=== PATIENT | male | born 1985 | race Caucasian/White ===

== ENCOUNTER 2022-01-15 18:59 | Inpatient (IN) | payer MEDICAID, SELFPAY ==
[2022-01-15 19:00] VITALS: BP 147/90; PULSE 111; RESP 18; TEMP 36.6; O2SAT 95; BMI 23.7
--- NOTE | 2022-01-15 19:06 | EDS_ITS ---
[facility] History of Present Illness Chief Complaint: Substance Abuse Narrative Narrative: Patient presents with request of detox. He uses fentanyl at least a gram daily via inhalation, he last used this morning and wants to quit for his kids. He has no current systemic complaints or any other medical problems. He has gone through detox 1 time in the past in [place], he went through the rehab phase also at that time. PFSH PFS Medical History no medical history Allergy/AdvReac Type Severity Reaction Status Date / Time No Known Allergies Allergy Verified 01/15/22 19:00 Social History Smoking Status: Current every day smoker tobacco type: cigarettes ROS ROS ED ROS Narrative Past medical history: Reviewed Medications: Reviewed Social history: Opiate abuser as in HPI, he has gone through detox 1 time in the past. Review of systems: All systems negative except as indicated General: No fever Eyes: No visual changes ENT: No upper airway congestion, normal voice Neck: No neck pain Cardiovascular: No chest pain Respiratory: No shortness of breath or cough Gastrointestinal: No abdominal pain, nausea vomiting or diarrhea Genitourinary: No dysuria Musculoskeletal: Denies myalgias no difficulty with ambulation Skin: No rash Neurological: No memory loss, confusion or any focal weakness Psych: No recent behavioral changes Hematologic: No easy bleeding or easy bruising EXAM Physical Exam Narrative Exam Narrative: Physical exam General: Well nourished, Well developed, No Acute Distress Head: Normocephalic, Atraumatic Eyes: Conjunctiva not pale ENT: Moist mucous membranes Neck: Supple, Nontender, No lymphadenopathy Cardiovascular: Regular rate, Regular rhythm Respiratory: No distress, CTA bilaterally Abdomen: Soft, Nontender, Nondistended Back: Nontender, Normal Inspection. Negative for: CVA tenderness Extremities: Nontender, No edema Skin: Normal color, No rash Neurological: Alert, Normal Strength, Normal Sensation Psychological: Normal affect Const Vital Signs: 01/15/22 19:00 Temperature 97.9 F Temperature Source Temporal Pulse Rate 111 H Respiratory Rate 18 Blood Pressure 147/90 H Blood Pressure Mean 109 Pulse Ox 95 Oxygen Delivery Method Room Air MDM MDM MDM Narrative Medical decision making narrative: Patient will be medically cleared. I will call for admission for detox. Discharge Plan Triage Chief Complaint: Substance Abuse ED Provider: Torrey Ferrer Dx/Rx/DC Orders Clinical Impression: Opiate abuse, continuous, Opiate dependence Primary Care Provider: [facility] Doctor,Out of Referrals: [facility] Doctor,Out of [Primary Care Provider] - Disposition Disposition: Acute Care Hospital [facility]
--- NOTE | 2022-01-15 19:26 | PCM.HP.STD ---
HPI - General General Date of Admission: 01/15/22 HPI Narrative JOSE RESENDEZ, is a 36 M with a significant history of drug abuse; and tobacco abuse who presents to the emergency department with follow-up with detoxification. Of notes patient's drug of choice is heroin/fentanyl. He inhaled these drugs. He has been using on and off for 20+ years. About 4 years ago he went to a drug rehabilitation program at [place]. He uses about 1 g or more a day. Last time he used was about 5 hours prior to presentation. He denies any withdrawal symptoms at this time except that he is anxious. [facility] Medical History Smoker Substance abuse Medical History no medical history no medical history Home Medications NK 01/15/22 [History Last Taken Unknown] Allergy/AdvReac Type Severity Reaction Status Date / Time adhesive tape Allergy Rash Verified 01/15/22 19:17 paroxetine [From Paxil] Allergy Rash Verified 01/15/22 19:17 Family History Other Colon cancer Surgical History no surgical history no surgical history Social History Smoking Status: Current every day smoker tobacco type: cigarettes ROS ROS Narrative Pertinent positives and pertinent negatives as noted in HPI. All other systems were reviewed and are negative. Vital Signs Vital Signs Vital Signs: 01/15/22 19:00 Temperature 97.9 F Temperature Source Temporal Pulse Rate 111 H Respiratory Rate 18 Blood Pressure 147/90 H Blood Pressure Mean 109 Pulse Ox 95 Oxygen Delivery Method Room Air Weight Weight: 79.379 kg Body Mass Index (BMI) 23.7 Physical Exam Narrative Physical exam: General: Well-nourished, well-developed. Head: Normocephalic, atraumatic, no tenderness Eyes: Vision is grossly intact. EOMI ENT, no trauma, moist mucous membranes, no rhinorrhea Neck: Nontender, full range of motion, no spinal tenderness, deformities, step-off CVS: Regular rate and rhythm. S1-S2 present. No murmur, gallop or rub. Respiratory : clear to auscultation bilaterally, chest wall nontender, no wheezing Abdomen: Soft, nontender, nondistended, normal bowel sounds, no masses : Deferred Back: Nontender, no CVA tenderness, no midline spinal tenderness, deformities, step-offs Extremities: Nontender full range of motion, no trauma Skin: Normal color, no trauma, abrasions Neuro: Alert, oriented, cranial nerves II through XII grossly intact. Psychiatry: Normal mood. Normal affect. Not depressed. Not anxious. Results Lab / Micro Data Result Diagrams: 01/15/22 19:15 01/15/22 19:10 Labs: Laboratory Results - last 24 hr 01/15/22 19:10: Ur Drug Screen Comment Assessment & Plan Assessment/Plan (1) Opiate abuse, continuous: (2) Opiate dependence: QUALIFIERS: Substance use status: uncomplicated Qualified Code(s): F11.20 - Opioid dependence, uncomplicated (3) Desire for detoxification: PLAN: Desire for detoxification Urine toxicology reviewed was positive for opiates. Patient be started on Subutex and other adjunctive medications: Gabapentin as needed; dicyclomine as needed; Vistaril as needed; methocarbamol as needed; clonidine as needed; Imodium as needed; trazodone as needed and Zofran as needed. Noted to have elevated blood pressure likely secondary to withdrawal. Trend. CBC showed elevated leukocytosis. Likely reactive. Trend. BMP reviewed was unremarkable. Monitor COWS and CINA score Tobacco abuse Counseled Nicotine patch and prescribed. DVT prophylaxis Low risk Encourage to ambulate Charges/Coding Visit Charges Inpatient E&M: 70830 Init Hosp L2
[2022-01-15 19:27] LABS: Absolute Lymphocyte Count 4.06 X10^3/uL (0.83-4.51); Absolute Neutrophil Count 11.5 X10^3/uL (2.0-7.7); Basophil# 0.03 X10^3/uL; Basophil% 0.2 % (0-1); Eosinophil# 0.13 X10^3/uL; Eosinophils% 0.8 % (0-5); Hemoglobin 15.7 g/dL (13.0-16.5); Lymphocyte # 4.06 X10^3/ul (0.83-4.51); Lymphocyte % 24.2 % (19-41); Mean Corp Hgb Conc 32.7 g/dL (32-36); Mean Corpuscular Hgb 29.2 pg (27.0-32.0); Mean Corpuscular Volume 89.2 fL (80-94); Mean Platelet Vol. 10.1 fl (6.2-12.0); Monocyte# 1.04 X10^3/uL; Monocyte% 6.2 % (0-10); NRBC Flagged by Analyzer 0 % (0-5); Neutrophil # 11.48 X10^3/uL (2.7-7.7); Neutrophil % 68.3 % (47-70); Platelet Count 384 K/mm3 (150-450); RBC Distribution Width CV 12.5 % (11.6-14.6); RBC Distribution Width SD 41.1 fl (35.1-43.9); Red Blood Count 5.38 M/mm3 (4.6-6.2); White Blood Count 16.8 K/mm3 (4.4-11.0)
[2022-01-15 19:47] VITALS: BP 137/97; PULSE 84; RESP 18; TEMP 36.3; O2SAT 99
[2022-01-15 19:52] LABS: ALB/GLOB Ratio 1.2 RATIO (0.9-2.4); AST(SGOT) 10 U/L (15-37); Alanine Aminotransfer ALT/SGPT 15 U/L (16-61); Albumin, Serum 4.4 g/dL (3.2-5.0); Alkaline Phosphatase 77 U/L (45-117); Anion Gap 5 (5-15); BUN 12 mg/dL (7-18); BUN/Creat Ratio 11.2 RATIO (10-20); Calcium,Total 9.1 mg/dL (8.5-10.1); Chloride 108 mmol/L (98-107); Creatinine, Serum 1.07 mg/dL (0.70-1.30); EST Glomerular Filtration Rate 83 mL/min (>60); Est Glom Filt Rate - Afr Amer 100 mL/min (>60); Estimated Creatinine Clearance 103.75 ml/min; Globulin 3.7 g/dL (2.2-4.2); Glucose 93 mg/dL (74-106); Potassium 3.9 mmol/L (3.5-5.1); Protein, Total 8.1 g/dL (6.4-8.2); Sodium Level 142 mmol/L (136-145)
[2022-01-15 19:57] LABS: Alcohol, Blood (Medical)-Serum < 3.0 mg/dL
[2022-01-15 20:00] LABS: Amphetamine Urine VISTA NEGATIVE (<1000 ng/mL); Barbiturate Urine VISTA NEGATIVE (< 200 ng/mL); Benzodiazepine Urine VISTA NEGATIVE (< 200 ng/mL); Cocaine Urine VISTA NEGATIVE (< 300 ng/mL); Ecstacy Urine VISTA NEGATIVE (< 500 ng/mL); Methadone Urine VISTA NEGATIVE (< 300 ng/mL); PCP Urine VISTA NEGATIVE (< 25 ng/mL); THC Urine VISTA NEGATIVE (< 50 ng/mL); Vista UDS pH Range 5
[2022-01-15 20:15] VITALS: BMI 22.6
[2022-01-15 20:23] VITALS: BP 136/95; PULSE 89; RESP 18; TEMP 37.2; O2SAT 97
[2022-01-15] MEDS: 0.9% Saline Lock 10 ML Syringe IV (21:17)
[2022-01-16 03:53] VITALS: BP 122/79; PULSE 76; RESP 16; TEMP 36.8; O2SAT 97
[2022-01-16 06:07] VITALS: PULSE 75; RESP 16; O2SAT 97
[2022-01-16 06:19] LABS: Absolute Lymphocyte Count 3.62 X10^3/uL (0.83-4.51); Absolute Neutrophil Count 4.7 X10^3/uL (2.0-7.7); Basophil# 0.04 X10^3/uL; Basophil% 0.4 % (0-1); Eosinophil# 0.25 X10^3/uL; Eosinophils% 2.7 % (0-5); Hematocrit 46.2 % (40-54); Lymphocyte # 3.62 X10^3/ul (0.83-4.51); Lymphocyte % 39.3 % (19-41); Mean Corp Hgb Conc 32.5 g/dL (32-36); Mean Corpuscular Hgb 29.1 pg (27.0-32.0); Mean Corpuscular Volume 89.5 fL (80-94); Mean Platelet Vol. 10.2 fl (6.2-12.0); Monocyte# 0.61 X10^3/uL; Monocyte% 6.6 % (0-10); NRBC Flagged by Analyzer 0 % (0-5); Neutrophil # 4.67 X10^3/uL (2.7-7.7); Neutrophil % 50.7 % (47-70); Platelet Count 272 K/mm3 (150-450); RBC Distribution Width CV 12.4 % (11.6-14.6); RBC Distribution Width SD 41.2 fl (35.1-43.9); Red Blood Count 5.16 M/mm3 (4.6-6.2); White Blood Count 9.2 K/mm3 (4.4-11.0)
[2022-01-16 08:00] VITALS: BP 108/91; PULSE 85; RESP 18; TEMP 36.5; O2SAT 99
[2022-01-16] MEDS: Buprenorphine HCl 2 MG TAB.SUBL SL ×2 (08:41→16:56)
[2022-01-16] MEDS: hydrOXYzine PAM 25 MG Capsule 50 MG PO ×2 (08:55→16:56)
[2022-01-16] MEDS: Methocarbamol 750 MG Tablet 1500 MG PO ×2 (08:55→16:56)
[2022-01-16] MEDS: Ondansetron 8 MG Tablet PO (08:55)
--- NOTE | 2022-01-16 11:01 | ADDICTION ---
This signwriter met with PT to conduct ASAM, MSE, AUDIT, DUDIT assessments and to plan for d/c. PT A+Ox4 and participated actively. All assessments completed and placed in PT's chart. PT plans to f/u with treatment services, however he wants a day to think about it. PT did not indicate a need for transportation post d/c from [facility].
--- NOTE | 2022-01-16 11:53 | PCM.PN.HOSP ---
Documented by User: Ambika Grissom NP-C 01/16/22 12:03 Subjective Subjective Patient seen and examined. Patient reporting symptoms of nausea, body aches, diaphoresis. Encourage patient to request supportive medications when needed and to communicate regularly with nurses about symptoms that he is having. Patient voiced understanding. Objective Data Objective Data Vital Signs: Vital Signs Temp Pulse Resp BP Pulse Ox 97.7 F L 85 18 108/91 H 99 01/16/22 08:00 01/16/22 08:00 01/16/22 08:00 01/16/22 08:00 01/16/22 08:00 Oxygen Delivery Method Room Air Weight: 166 lb 14.239 oz Body Mass Index (BMI) 22.6 Lab / Micro Data Result Diagrams: 01/16/22 05:55 01/15/22 19:10 Labs: Laboratory Results - last 24 hr 01/15/22 19:10: Sodium 142, Potassium 3.9, Chloride 108 H, Carbon Dioxide 29.0, Anion Gap 5, BUN 12, Creatinine 1.07, Estim Creat Clear Calc 103.75, Est GFR (MDRD) Af Amer 100, Est GFR (MDRD) Non-Af 83, BUN/Creatinine Ratio 11.2, Glucose 93, Calcium 9.1, Total Bilirubin 0.40, AST 10 L, ALT 15 L, Alkaline Phosphatase 77, Total Protein 8.1, Albumin 4.4, Globulin 3.7, Albumin/Globulin Ratio 1.2 01/15/22 19:10: Urine Opiates Screen POSITIVE H, Urine Methadone Screen NEGATIVE, Ur Barbiturates Screen NEGATIVE, Ur Phencyclidine Scrn NEGATIVE, Ur Amphetamines Screen NEGATIVE, MDMA (Ecstasy) Screen NEGATIVE, U Benzodiazepines Scrn NEGATIVE, Urine Cocaine Screen NEGATIVE, U Cannabinoids Screen NEGATIVE, Ur Drug Screen Comment 01/15/22 19:15: WBC 16.8 H, RBC 5.38, Hgb 15.7, Hct 48.0, MCV 89.2, MCH 29.2, MCHC 32.7, RDW Std Deviation 41.1, RDW Coeff of Marshall 12.5, Plt Count 384, MPV 10.1, Immature Gran % (Auto) 0.300, Neut % (Auto) 68.3, Lymph % (Auto) 24.2, Oliver % (Auto) 6.2, Eos % (Auto) 0.8, Baso % (Auto) 0.2, Absolute Neuts (auto) 11.5 H, Absolute Lymphs (auto) 4.06, Nucleated RBC % 0 01/15/22 19:15: Ethyl Alcohol < 3.0 01/16/22 05:55: WBC 9.2, RBC 5.16, Hgb 15.0, Hct 46.2, MCV 89.5, MCH 29.1, MCHC 32.5, RDW Std Deviation 41.2, RDW Coeff of Marshall 12.4, Plt Count 272, MPV 10.2, Immature Gran % (Auto) 0.300, Neut % (Auto) 50.7, Lymph % (Auto) 39.3, Oliver % (Auto) 6.6, Eos % (Auto) 2.7, Baso % (Auto) 0.4, Absolute Neuts (auto) 4.7, Absolute Lymphs (auto) 3.62, Nucleated RBC % 0 Physical Exam Const alert and oriented x3 General Appearance: anxious HEENT head/scalp atraumatic Head and Scalp: normocephalic Eyes conjunctivae normal and no scleral icterus Neck supple General: trachea midline Resp normal respiratory effort, normal air movement and clear to auscultation bilaterally Effort and Inspection: able to speak in complete sentences and symmetric chest movement Cardio regular rate, regular rhythm, S1 normal heart sound and S2 normal heart sound GI normal to inspection, nondistended, normoactive bowel sounds, soft to palpation and non-tender Extremity normal to inspection, full ROM and no clubbing, cyanosis or edema Skin no rashes or lesions noted Neuro oriented x3 and moves all extremities Sensorium / Orientation: awake and alert Psych affect normal Assessment & Plan Assessment/Plan (1) Opiate abuse, continuous: (2) Opiate dependence: QUALIFIERS: Substance use status: uncomplicated Qualified Code(s): F11.20 - Opioid dependence, uncomplicated (3) Desire for detoxification: PLAN: 1. Desire for detoxification from opiates -Continue buprenorphine taper per protocol -Supportive medications ordered, encourage patient to utilize these to help with withdrawal symptoms as patient is having severe body aches, diaphoresis, nausea -White blood cell count normal, was elevated yesterday and thought to be reactive 2. Tobacco dependence -Continue nicotine patch -Encourage cessation DVT prophylaxis-encourage ambulation This patient was seen by Ambika Knoble, VICE PRESIDENT [employer]-C under the supervision of Dr. Rodriguez. 12 minutes spent in clinical coordination of patient's plan of care. Documented by User: Dr. Bradley Rodriguez, 01/16/22 12:13 Objective Data Lab / Micro Data Result Diagrams: 01/16/22 05:55 01/15/22 19:10 Charges/Coding Addendum Addendum: Patient was seen and examined today independently of Molly Grissom, he was admitted yesterday for detox services related to fentanyl use. Patient states that he was having some symptoms of nervousness and shakiness this morning but since he is got medications he has been better. According to addiction group social worker, patient does not know whether he wants to do inpatient follow-up for outpatient follow-up. He told the social truck rental service attendant that he wanted to make a decision after 24 hours. On examination he appeared in good health and spirits. Vital signs as documented. Skin warm and dry and without overt rashes. Neck without JVD, neck was supple, trachea midline, thyroid was normal. Lungs clear bilaterally, normal air movement was noted. Heart exam notable for regular rhythm, normal sounds and absence of murmurs, rubs or gallops. Abdomen unremarkable and without evidence of organomegaly, masses, or abdominal aortic enlargement. Bowel sounds are present, abdomen is not distended. Extremities nonedematous, no cyanosis was noted, no clubbing was noted. Neuro: Cranial nerves II through XII are grossly intact, no focal motor deficits were noted, sensation to light touch and pinprick intact, motor exam 5/5 throughout. Psych: Patient is alert and oriented x3, he does not appear anxious or depressed, he does not appear agitated. Impression: #1 acute fentanyl withdrawal-continue present medications #2 chronic fentanyl abuse-as above I have reviewed Molly Grissom's progress note including her medical assessment and plan of care and endorse it. Total clinical time spent by myself addressing the patient's medical issues, reviewing all the data, and collaborating with the patient's care team: 20 minutes Visit Charges Inpatient E&M: 61657 Subs Hosp L2
[2022-01-16 13:52] VITALS: BP 111/72; PULSE 87; RESP 16; TEMP 36.6; O2SAT 99
[2022-01-16 23:45] VITALS: BP 111/70; PULSE 78; RESP 16; TEMP 36.9; O2SAT 97
[2022-01-17] MEDS: 0.9% Saline Lock 10 ML Syringe IV (00:27)
[2022-01-17] MEDS: Buprenorphine HCl 2 MG TAB.SUBL SL ×2 (00:38→09:25)
[2022-01-17 03:47] VITALS: BP 109/78; PULSE 71; RESP 16; TEMP 36.6; O2SAT 97
[2022-01-17 09:36] VITALS: BP 122/70; PULSE 70; RESP 16; TEMP 36.8; O2SAT 98
--- NOTE | 2022-01-17 11:08 | DCINST_ITS ---
Discharge Instructions Diet Discharge Diet: No restrictions Activity Discharge Activity: Return to Normal Activity Follow Up Care Test Results: Test results from this visit will be discussed in further detail at your follow-up appointment, if applicable. Discharge Plan Admission Admit Date/Time: 01/15/22 19:26 Primary Reason for Your Visit: Opioid detox Attending Provider: Bradley Rodriguez Primary Care Provider: Tonny Physician,No Primary Consulting Providers: Goyo Alex Discharge Orders/Prescriptions Prescriptions: No Action NK RF: 0 Referrals / Follow Up: Care Physician,No Primary [Primary Care Provider] - [facility] Doctor,Out of [NON-STAFF] - Disposition Disposition (needs filled in before D/C Order can be placed): Inpatient Rehab Unit/Facility
--- NOTE | 2022-01-17 11:10 | DS.PCM_ITS ---
Documented by User: IMANI Yanes 01/17/22 11:12 Providers Date of Admission: 01/15/22 Date of Discharge: 01/17/22 Primary Care Physician: Kerry Primary Care Phys Reason For Visit: DESIRE FOR DETOXIFICATION Diagnosis Discharge Diagnosis (1) Opiate abuse, continuous: Status: Acute Code(s): F11.10 - Opioid abuse, uncomplicated (2) Opiate dependence: Status: Acute Code(s): F11.20 - Opioid dependence, uncomplicated Qualifiers: Substance use status: uncomplicated Qualified Code(s): F11.20 - Opioid dependence, uncomplicated (3) Desire for detoxification: Status: Acute Medications at Discharge Home Medications NK 01/15/22 Hospital Course Operations None Procedures None Summary of Care Provided Minutes Spent on Discharge: 35 Hospital Course: Patient is a 36-year-old male who initially presented for detoxification from opiates. Patient underwent buprenorphine taper along with supportive medications over the past 48 hours and is now withdrawal symptom free. Patient will be discharged to inpatient facility for continued intensive rehab. Patient will be going to [place] [facility] for inpatient rehab program. Physical Exam Const alert, oriented x3 and no apparent distress General Appearance: cooperative HEENT normocephalic and head/scalp atraumatic Eyes conjunctivae normal and no scleral icterus Neck supple General: trachea midline Resp normal respiratory effort, normal air movement and clear to auscultation bilaterally Cardio regular rate, regular rhythm, S1 normal heart sound, S2 normal heart sound and peripheral pulses 2+ throughout GI normal to inspection, nondistended, normoactive bowel sounds, soft to palpation and non-tender Extremity normal capillary refill and no clubbing, cyanosis or edema General Extremity: no tenderness to palpation of joints or extremities Skin skin turgor normal General Skin Exam: no breakdown Lesions: no lesions Rashes: no rashes Neuro no focal motor deficits and no sensory deficits noted Speech: speech normal Psych affect normal Appearance: appropriate Weight / BMI Weight Weight: 166 lb 14.239 oz Body Mass Index (BMI) 22.6 ABG / Lab / Microbiology Data Result Diagrams: 01/16/22 05:55 01/15/22 19:10 D/C Instructions Discharge Diet: No restrictions Meaningful Use Info Meaningful Use Diagnoses (Choose all that apply): None applicable Discharge Plan Admission Admit Date/Time: 01/15/22 19:26 Primary Reason for Your Visit: Opioid detox Attending Provider: Bradley Rodriguez Primary Care Provider: Tonny Joshi,No Primary Consulting Providers: Goyo Alex Discharge Orders/Prescriptions Prescriptions: No Action NK RF: 0 Referrals / Follow Up: Care Physician,Kerry Primary [Primary Care Provider] - [facility] Doctor,Out of [NON-STAFF] - Disposition Disposition (needs filled in before D/C Order can be placed): Inpatient Rehab Unit/Facility Documented by User: Dr. Bradley Rodriguez, 01/20/22 17:56 Providers Date of Admission: 01/15/22 Reason For Visit: DESIRE FOR DETOXIFICATION Medications at Discharge Home Medications NK 01/15/22 ABG / Lab / Microbiology Data Result Diagrams: 01/16/22 05:55 01/15/22 19:10 Discharge Plan Admission Admit Date/Time: 01/15/22 19:26 Primary Reason for Your Visit: Opioid detox Attending Provider: Bradley Rodriguez Primary Care Provider: Tonny Joshi,No Primary Consulting Providers: Goyo Alex Discharge Orders/Prescriptions Prescriptions: No Action NK RF: 0 Referrals / Follow Up: Tonny Physician,No Primary [Primary Care Provider] - [facility] Doctor,Out of [NON-STAFF] - Disposition Disposition (needs filled in before D/C Order can be placed): Inpatient Rehab Unit/Facility Charges/Coding Addendum Addendum: Patient was seen and examined independently of Molly Grissom, he appears stable for discharge at this time and has no symptoms of narcotic withdrawal. Patient will be discharged to an inpatient detox facility for further detox services today On examination he appeared in good health and spirits. Vital signs as documented. Skin warm and dry and without overt rashes. Neck without JVD, neck was supple, trachea midline, thyroid was normal. Lungs clear bilaterally, normal air movement was noted. Heart exam notable for regular rhythm, normal sounds and absence of murmurs, rubs or gallops. Abdomen unremarkable and without evidence of organomegaly, masses, or abdominal aortic enlargement. Bowel sounds are present, abdomen is not distended. Extremities nonedematous, no cyanosis was noted, no clubbing was noted. Neuro: Cranial nerves II through XII are grossly intact, no focal motor deficits were noted, sensation to light touch and pinprick intact, motor exam 5/5 throughout. Psych: Patient is alert and oriented x3, he does not appear anxious or depressed, he does not appear agitated. #1 opiate withdrawal #2 chronic illicit opiate usage I have reviewed Molly Grissom's discharge summary including her medical assessment and plan of care with the above additions endorse it. Total clinical time spent by myself addressing the patient's medical issues, reviewing the data, and collaborating with the patient's care team: 25 minutes Visit Charges Inpatient E&M: 52212 Disch Hosp
[2022-01-17 13:17] VITALS: BP 147/70; PULSE 78; RESP 18; TEMP 36.8; O2SAT 98
== END 2022-01-17 13:48 | DRG 772 ==
LOC: ED 19:23 → MS3 19:54
PROVIDERS: Admitting Provider Hospitalist; Emergency Provider Emergency Medicine; Visit Provider Internal Medicine
DX: F11.23 Opioid dependence with withdrawal (principal); F17.210 Nicotine dependence, cigarettes, uncomplicated
CPT/HCPCS: 36415; 80053; 80307; 82077; 85025; 99284; A4216